=== PATIENT | male | born 1985 | race Caucasian/White ===

== ENCOUNTER → 2017-08-05 | Day surgery (SDC) | payer MEDICAID ==
[~2017-08-05] VITALS: Ht 170.2 cm; Wt 106.0 kg
[~2017-08-05] MED LIST: ACETAMINOPHEN 1000 MG/100 ML 100 ML IV ONE; BACITRACIN OPHT OINT 3.5 GM TUBO ONE; BACITRACIN TOP OINT 15 GM TUBE ONE; BUPIVACAINE HCL PF 0.5% 30 ML VIAL ONE; CANA1TAB3 PO; CHLORHEXIDINE GLUCONATE 2 % 1 PACK (2 CLOTHS) TOPICAL PRN; DEXAMETHASONE SOD PHOS 4 MG/ML VIAL IV ONE; DO NOT ADM ANY ANTICOAGULANT DRUGS PRN; HYDROmorphone HCL PF 2 MG/ML VIAL ONE; INSULIN HUMAN REGULAR 1,000 UNITS/10 ML VIAL SQ PRN; LACTATED RINGER'S 1000 ML IV PRN; LIDOCAINE HCL 1% PF 5 ML AMPULE OTHER ONE; METF500T PO; METOPROLOL TARTRATE 25 MG TAB PO PRN; MORPHINE SULFATE 4 MG/ML INJ IV PRN; ONDANSETRON HCL 4 MG/2 ML VIAL IV ONE; ONDANSETRON HCL 4 MG/2 ML VIAL IV PUSH PRN; POVIDONE IODINE 5% (ANTISEPSIS KIT) 4 APPLICATIONS EACH NARE PRN; PROPOFOL 200 MG/20 ML AMP IV ONE; SODIUM CHLORID 0.9% 500 ML IV PRN; VANCOMYCIN HCL 1000 MG ON-CALL/NS 250 ML IV SCH; VANCOMYCIN HCL 1000 MG VIAL ONE; oxyCODONE/ACETAMINOPHEN 5 MG/325 MG TAB PO PRN
[2017-08-05 10:29] LABS: AUTOMATED NEUTROPHIL # 9.6 TH/MM3 (1.8-7.7); BASOPHIL % 0.4 % (0.0-2.0); EOSINOPHIL # 0.3 TH/MM3 (0-0.4); EOSINOPHIL % 2.4 % (0.0-4.0); HEMATOCRIT 50.4 % (39.0-51.0); HEMOGLOBIN 17.7 GM/DL (13.0-17.0); LYMPH % 17.4 % (9.0-44.0); LYMPHOCYTE # 2.3 TH/MM3 (1.0-4.8); MEAN CELL VOLUME 86.6 FL (80.0-100.0); MEAN CORPUSCULAR HEMOGLOBIN 30.3 PG (27.0-34.0); MEAN PLATELET VOLUME 9.3 FL (7.0-11.0); MONO % 6.2 % (0.0-8.0); MONOCYTE # 0.8 TH/MM3 (0-0.9); NEUT % 73.6 % (16.0-70.0); PLATELET COUNT 235 TH/MM3 (150-450); RED BLOOD COUNT 5.82 MIL/MM3 (4.50-5.90); RED CELL DISTRIBUTION WIDTH 13.2 % (11.6-17.2)
--- NOTE | 2017-08-05 12:20 | PD.OP ---
Operative Report Date of Surgery: Aug 05, 2017 Preoperative Diagnosis: Phimosis with frenular attachment Postoperative Diagnosis: Same Procedure: Circumcision Anesthesia: General LMA Surgeon: Shane Dunn Power Screwdriver Operator(s): None Resident Surgeon: None Operation and Findings: 5 year-old male with history of diabetes and phimosis with frenular attachment causing pain with intercourse and retraction of foreskin. Decision was made to bring the patient to the operating room to undergo circumcision. Risk and benefits were discussed preoperatively and he was willing to proceed. The patient was brought to the operating room and identified by my self as Fercho Melton. He is placed in the supine position on the operating table, received preprocedure bites, was prepped and draped in usual sterile fashion, and general LMA anesthesia was administered. A circumferential incision was made around the glans penis over the foreskin and then another circumferential incision was made just behind the head of the glans. The foreskin between these 2 circumferential incisions to was then removed. Hemostasis was obtained using the Bovie cautery. Specimen was sent to pathology. 4-0 chromic sutures were then used and placed in an interrupted fashion to close the remaining skin. Hemostasis was obtained throughout the entire procedure. A 1% Marcaine block was also utilized the beginning and end the procedure. Bacitracin ointment followed by sterile gauze and Coban were then placed and wrapped around the penis. He was awoken and transferred Stable condition. He tolerated the procedure well. Shane Dunn DO Aug 05, 2017 12:20
[2017-08-05 13:23] VITALS: BP 127/69; PULSE 80; RESP 18; TEMP 97.1; O2SAT 97
== END | disposition home or self-care (01) ==
LOC: HSDC 09:30
PROVIDERS: ATTEND Urology
DX: N47.1 Phimosis (principal)
CPT/HCPCS: 00920; 54161; 85025; 88304; J0131; J1100; J1170; J2405; J3370; J7050; J7120; 88302

== ENCOUNTER 2017-08-18 10:15 | Emergency (ER) | payer MEDICAID ==
[~2017-08-18] VITALS: Ht 170.2 cm; Wt 105.0 kg
[~2017-08-18 10:15] MED LIST changes: -ACETAMINOPHEN 1000 MG/100 ML 100 ML IV ONE; -BACITRACIN OPHT OINT 3.5 GM TUBO ONE; -BACITRACIN TOP OINT 15 GM TUBE ONE; -BUPIVACAINE HCL PF 0.5% 30 ML VIAL ONE; -CANA1TAB3 PO; -CHLORHEXIDINE GLUCONATE 2 % 1 PACK (2 CLOTHS) TOPICAL PRN; -DEXAMETHASONE SOD PHOS 4 MG/ML VIAL IV ONE; -DO NOT ADM ANY ANTICOAGULANT DRUGS PRN; -HYDROmorphone HCL PF 2 MG/ML VIAL ONE; -INSULIN HUMAN REGULAR 1,000 UNITS/10 ML VIAL SQ PRN; -LACTATED RINGER'S 1000 ML IV PRN; -LIDOCAINE HCL 1% PF 5 ML AMPULE OTHER ONE; -METOPROLOL TARTRATE 25 MG TAB PO PRN; -MORPHINE SULFATE 4 MG/ML INJ IV PRN; -ONDANSETRON HCL 4 MG/2 ML VIAL IV ONE; -ONDANSETRON HCL 4 MG/2 ML VIAL IV PUSH PRN; -POVIDONE IODINE 5% (ANTISEPSIS KIT) 4 APPLICATIONS EACH NARE PRN; -PROPOFOL 200 MG/20 ML AMP IV ONE; -SODIUM CHLORID 0.9% 500 ML IV PRN; -VANCOMYCIN HCL 1000 MG ON-CALL/NS 250 ML IV SCH; -VANCOMYCIN HCL 1000 MG VIAL ONE; -oxyCODONE/ACETAMINOPHEN 5 MG/325 MG TAB PO PRN
[2017-08-18 10:16] VITALS: BP 139/80; PULSE 84; RESP 16; TEMP 98.5; O2SAT 98
[2017-08-18] MEDS ORDERED: TRAM50 PO (10:33)
[2017-08-18] MEDS ORDERED: CEPH-460 PO (10:33)
--- NOTE | 2017-08-18 11:00 | PD ---
HPI . Wound problem Chief Complaint: Skin Problem Time Seen by Provider: 10:30 Travel History International Travel<30 days: No Contact w/Intl Traveler<30days: No Traveled to known affect area: No History of Present Illness HPI This patient presents stating that he underwent an elective circumcision on August 05. He states that his "stitches came out" last night. He comes in to us for evaluation of same. He has not called the surgeon. He states that the involved wound is approximately one third of the circumference of his borden. He denies pain. There has been no change in his symptoms since the onset last night. He denies any other symptoms such as purulent drainage, fever, urinary tract symptoms, nausea or vomiting. PFSH Past Medical History Cancer: No Cardiovascular Problems: No Diabetes: Yes Patient Takes Glucophage: Yes Endocrine: Yes (typeII) Genitourinary: No Hepatitis: No Hiatal Hernia: No Immune Disorder: No Musculoskeletal: No Neurologic: No Psychiatric: No Respiratory: No Thyroid Disease: No Past Surgical History AICD: No Body Medical Devices: NONE Joint Replacement: No Pacemaker: No Other Surgery: Yes (circumcision at 32) Social History Alcohol Use: Yes (occasionally) Tobacco Use: Yes (one pack per day) Substance Use: Yes (MARIJUANA) Allergies-Medications (Allergen,Severity, Reaction): Coded Allergies: penicillin G (Verified Allergy, Severe, Swelling, 08/05/17) Reported Meds & Prescriptions Reported Meds & Active Scripts Active Ultram (Tramadol HCl) 50 Mg Tab 50 Mg PO Q4H PRN Keflex (Cephalexin) 500 Mg Cap 500 Mg PO Q8H Reported Metformin (Metformin HCl) 500 Mg Tab 500 Mg PO BIDPC Review of Systems Except as stated in HPI: all other systems reviewed are Neg Physical Exam Narrative GENERAL: Awake and alert and in no acute distress. SKIN: He has an open wound on the ventral surface of the glans penis at the borden. There is no andre drainage but the tissue appears slightly necrotic. A wound culture was obtained. The surrounding tissue is not red or hot. HEAD: Normocephalic/atraumatic. EYES: Pupils are equal. Extraocular movements are intact. NECK: Supple. CARDIOVASCULAR: Regular rate and rhythm. RESPIRATORY: Nonlabored respirations. MUSCULOSKELETAL: Atraumatic. NEUROLOGICAL: Nonfocal. PSYCHIATRIC: Appropriate mood and affect. Data Data Last Documented VS Vital Signs Date Time Temp Pulse Resp B/P (MAP) Pulse Ox O2 Delivery O2 Flow Rate FiO2 08/18/17 10:28 17 08/18/17 10:16 98.5 84 139/80 (99) 98 Room Air Orders Orders Ed Discharge Order (08/18/17 10:50) MDM Medical Decision Making Medical Screen Exam Complete: Yes Emergency Medical Condition: Yes Differential Diagnosis Differential diagnosis includes but is not limited to broken sutures, local wound infection, cellulitis, sepsis Narrative Course This patient presents for the evaluation of a dehisced wound following circumcision. I suspect early wound infection. I have instructed him and local wound care. I have prescribed Keflex. He is to call his surgeon today appointment either today or tomorrow. Diagnosis Primary Impression: Wound infection after surgery Qualified Codes: T81.4XXA - Infection following a procedure, initial encounter Additional Impression: Wound dehiscence Referrals: Shane Dunn DO 1 day Call him when you leave here for an appointment today or tomorrow. Patient Instructions: General Instructions, Wound Infection (ED), Wound Dehiscence (ED) Departure Forms: Tests/Procedures Additional Instructions: Wash wound gently twice daily with antibiotic soap and water. Then apply an antibiotic ointment. Keflex as directed for infection. Ultram for pain. Scripts Tramadol (Ultram) 50 Mg Tab 50 MG PO Q4H Y for PAIN, #12 TAB 0 Refills Prov: Yahaira Rodarte MD 08/18/17 Cephalexin (Keflex) 500 Mg Cap 500 MG PO Q8H for Infection, #30 CAP 0 Refills Prov: Yahaira Rodarte MD 08/18/17 Disposition: 01 DISCHARGE HOME Condition: Stable Yahaira Rodarte MD Aug 18, 2017 11:00
== END 2017-08-18 11:25 | disposition home or self-care (01) ==
LOC: NEPC 10:15
DX: T81.4XXA Infection following a procedure, initial encounter (principal); B96.89 Other specified bacterial agents as the cause of diseases classified elsewhere; T81.30XA Disruption of wound, unspecified, initial encounter; F17.200 Nicotine dependence, unspecified, uncomplicated; Y83.8 Other surgical procedures as the cause of abnormal reaction of the patient, or of later complication, without mention of misadventure at the time of the procedure
CPT/HCPCS: 87070; 87077; 87186; 99284